=== PATIENT | female | born 1965 | race Caucasian/White ===

== ENCOUNTER 2021-10-28 17:14 | Inpatient (IN) | payer OTHER ==
[2021-10-28] MEDS ORDERED: SODIUM CHLORIDE 0.9% 500 ML INFUS.BAG IV ONE (17:55)
[2021-10-28 18:44] LABS: BASO % 0.8 % (0-2.0); EOS % 0.7 % (0-4.5); HEMATOCRIT 34.2 % (32.4-45.2); HEMOGLOBIN 11.6 GM/dL (10.7-15.3); LYMPH % 34.1 % (8-40); MCHC 33.9 g/dl (32.0-36.0); MEAN CELL VOLUME 91.6 fl (80-96); MEAN PLT VOLUME 9.7 fl (7.5-11.1); MONO % 8.1 % (3.8-10.2); NEUT % 56.3 % (42.8-82.8); PLATELET COUNT 155 10^3/uL (134-434); RBC 3.73 M/mm3 (3.60-5.2); RDW 12.7 % (11.6-15.6); WHITE BLOOD COUNT 6.9 K/mm3 (4.0-10.0)
[2021-10-28 18:59] LABS: INR 1.05 (0.83-1.09); PROTHROMBIN TIME (PATIENT) 12.1 SEC (9.7-13.0)
[2021-10-28 19:02] LABS: ACTIVATED PTT 29.7 SECONDS (25.2-36.5)
[2021-10-28 19:05] LABS: ALBUMIN 3.6 g/dl (3.4-5.0); CALCIUM 8.7 mg/dL (8.5-10.1)
[2021-10-28 19:06] LABS: BLOOD UREA NITROGEN 24.7 mg/dL (7-18); MAGNESIUM 1.9 mg/dL (1.8-2.4)
[2021-10-28 19:08] LABS: CREATININE 0.6 mg/dL (0.55-1.3)
[2021-10-28 19:09] LABS: PHOSPHOROUS 3.9 mg/dL (2.5-4.9)
[2021-10-28 19:10] LABS: BILIRUBIN,TOTAL 0.6 mg/dL (0.2-1); TOT PROT 6.1 g/dl (6.4-8.2)
[2021-10-29 02:35] LABS: BASO % 0.9 % (0-2.0); EOS % 1.1 % (0-4.5); HEMATOCRIT 32.4 % (32.4-45.2); LYMPH % 39.8 % (8-40); MCH 31.3 pg (25.7-33.7); MCHC 33.9 g/dl (32.0-36.0); MEAN CELL VOLUME 92.2 fl (80-96); MEAN PLT VOLUME 9.7 fl (7.5-11.1); MONO % 8.4 % (3.8-10.2); NEUT % 49.8 % (42.8-82.8); PLATELET COUNT 152 10^3/uL (134-434); RBC 3.51 M/mm3 (3.60-5.2); RDW 12.7 % (11.6-15.6); WHITE BLOOD COUNT 6.7 K/mm3 (4.0-10.0)
[2021-10-29] MEDS: SODIUM CHLORIDE 1,000 ML IV SCH (03:00)
[2021-10-29 03:20] VITALS: BMI 24.7
[2021-10-29 09:29] LABS: ALBUMIN 3.4 g/dl (3.4-5.0); BLOOD UREA NITROGEN 17.3 mg/dL (7-18); CALCIUM 8.7 mg/dL (8.5-10.1); MAGNESIUM 2.1 mg/dL (1.8-2.4)
[2021-10-29 09:32] LABS: CREATININE 0.6 mg/dL (0.55-1.3); PHOSPHOROUS 3.8 mg/dL (2.5-4.9)
[2021-10-29 09:34] LABS: BILIRUBIN,TOTAL 0.7 mg/dL (0.2-1); TOT PROT 5.7 g/dl (6.4-8.2)
[2021-10-29 09:39] LABS: EPI CELLS 21 /uL (0-25.1); HYALINE CASTS 0 /uL (0-3.1); URINE APPEARANCE CLEAR; URINE BACTERIA 263 /uL (0-1359); URINE BILIRUBIN NEGATIVE (NEGATIVE); URINE COLOR YELLOW; URINE GLUCOSE (UA) NEGATIVE (NEGATIVE); URINE KETONE NEGATIVE (NEGATIVE); URINE LEUK ESTERASE 2+ (NEGATIVE); URINE NITRITE NEGATIVE (NEGATIVE); URINE PROTEIN NEGATIVE (NEGATIVE); URINE RBC 15 /uL (0-23.9); URINE UROBILINOGEN 0.2 mg/dL (0.2-1.0); URINE WBC 98 /uL (0-25.8)
[2021-10-29] MEDS ORDERED: PANTOPRAZOLE SODIUM 40 MG VIAL IVPUSH SCH (10:00)
[2021-10-29 10:08] LABS: BASO % 0.7 % (0-2.0); EOS % 1.4 % (0-4.5); HEMOGLOBIN 10.5 GM/dL (10.7-15.3); LYMPH % 39.2 % (8-40); MCH 30.3 pg (25.7-33.7); MCHC 32.8 g/dl (32.0-36.0); MEAN CELL VOLUME 92.6 fl (80-96); MEAN PLT VOLUME 10.1 fl (7.5-11.1); MONO % 9.2 % (3.8-10.2); NEUT % 49.5 % (42.8-82.8); PLATELET COUNT 154 10^3/uL (134-434); RBC 3.45 M/mm3 (3.60-5.2); RDW 12.7 % (11.6-15.6); WHITE BLOOD COUNT 4.4 K/mm3 (4.0-10.0)
[2021-10-29 15:20] LABS: HEMATOCRIT 31.1 % (32.4-45.2); HEMOGLOBIN 10.3 GM/dL (10.7-15.3); MCH 30.8 pg (25.7-33.7); MCHC 33.1 g/dl (32.0-36.0); MEAN CELL VOLUME 92.9 fl (80-96); MEAN PLT VOLUME 9.9 fl (7.5-11.1); PLATELET COUNT 149 10^3/uL (134-434); RBC 3.34 M/mm3 (3.60-5.2); RDW 12.8 % (11.6-15.6); WHITE BLOOD COUNT 5.5 K/mm3 (4.0-10.0)
[2021-10-29] MEDS ORDERED: BISACODYL 5 MG TABLET.DR (FP) PO ONE (17:00)
[2021-10-29] MEDS: PEG 3350/NA SULF BICARB CL/KCL 4000 ML SOLN.RECON PO ONE ×2 (17:09→17:58)
[2021-10-30] MEDS: SODIUM CHLORIDE 1,000 ML IV SCH ×2 (00:13→10:16)
[2021-10-30 09:53] LABS: BASO % 0.9 % (0-2.0); EOS % 3.6 % (0-4.5); HEMATOCRIT 28.9 % (32.4-45.2); HEMOGLOBIN 9.7 GM/dL (10.7-15.3); LYMPH % 43.1 % (8-40); MCHC 33.5 g/dl (32.0-36.0); MEAN CELL VOLUME 92.6 fl (80-96); MONO % 9.3 % (3.8-10.2); NEUT % 43.1 % (42.8-82.8); PLATELET COUNT 142 10^3/uL (134-434); RBC 3.12 M/mm3 (3.60-5.2); RDW 12.6 % (11.6-15.6); WHITE BLOOD COUNT 4.1 K/mm3 (4.0-10.0)
[2021-10-30] MEDS: PANTOPRAZOLE 40 MG TABLET PO SCH (10:16)
[2021-10-30 10:27] LABS: ALBUMIN 3.4 g/dl (3.4-5.0); BLOOD UREA NITROGEN 11.2 mg/dL (7-18); CALCIUM 8.5 mg/dL (8.5-10.1); MAGNESIUM 1.8 mg/dL (1.8-2.4); PHOSPHOROUS 3.9 mg/dL (2.5-4.9)
[2021-10-30 10:28] LABS: CREATININE 0.6 mg/dL (0.55-1.3)
[2021-10-30 10:29] LABS: BILIRUBIN,TOTAL 0.4 mg/dL (0.2-1); TOT PROT 5.5 g/dl (6.4-8.2)
[2021-10-30 19:56] LABS: BASO % 0.7 % (0-2.0); EOS % 3.3 % (0-4.5); HEMATOCRIT 26.9 % (32.4-45.2); HEMOGLOBIN 8.7 GM/dL (10.7-15.3); LYMPH % 37.6 % (8-40); MCH 30.4 pg (25.7-33.7); MCHC 32.4 g/dl (32.0-36.0); MEAN CELL VOLUME 93.8 fl (80-96); MEAN PLT VOLUME 9.7 fl (7.5-11.1); MONO % 10.7 % (3.8-10.2); NEUT % 47.7 % (42.8-82.8); PLATELET COUNT 145 10^3/uL (134-434); RBC 2.87 M/mm3 (3.60-5.2); RDW 12.5 % (11.6-15.6); WHITE BLOOD COUNT 4.8 K/mm3 (4.0-10.0)
[2021-10-31 08:47] LABS: BASO % 0.7 % (0-2.0); EOS % 4.9 % (0-4.5); HEMATOCRIT 28.8 % (32.4-45.2); HEMOGLOBIN 9.6 GM/dL (10.7-15.3); LYMPH % 39.7 % (8-40); MCH 31.3 pg (25.7-33.7); MCHC 33.5 g/dl (32.0-36.0); MEAN CELL VOLUME 93.6 fl (80-96); MONO % 8.7 % (3.8-10.2); PLATELET COUNT 149 10^3/uL (134-434); RBC 3.08 M/mm3 (3.60-5.2); RDW 12.9 % (11.6-15.6); WHITE BLOOD COUNT 4.5 K/mm3 (4.0-10.0)
[2021-10-31 09:19] LABS: CALCIUM 8.7 mg/dL (8.5-10.1)
[2021-10-31 09:20] LABS: ALBUMIN 3.2 g/dl (3.4-5.0); BLOOD UREA NITROGEN 7.2 mg/dL (7-18)
[2021-10-31 09:22] LABS: CREATININE 0.6 mg/dL (0.55-1.3)
[2021-10-31 09:23] LABS: BILIRUBIN,TOTAL 0.5 mg/dL (0.2-1)
[2021-10-31 09:24] LABS: TOT PROT 5.5 g/dl (6.4-8.2)
[2021-10-31] MEDS: PANTOPRAZOLE 40 MG TABLET PO SCH (09:52)
[2021-10-31 11:06] LABS: BASO % 0.8 % (0-2.0); EOS % 3.1 % (0-4.5); HEMOGLOBIN 9.4 GM/dL (10.7-15.3); LYMPH % 37.3 % (8-40); MCHC 33.7 g/dl (32.0-36.0); MEAN CELL VOLUME 92.1 fl (80-96); MEAN PLT VOLUME 9.5 fl (7.5-11.1); MONO % 9.2 % (3.8-10.2); NEUT % 49.6 % (42.8-82.8); PLATELET COUNT 153 10^3/uL (134-434); RBC 3.04 M/mm3 (3.60-5.2); RDW 12.7 % (11.6-15.6); WHITE BLOOD COUNT 4.2 K/mm3 (4.0-10.0)
[2021-10-31 15:48] VITALS: BP 115/71; PULSE 88; TEMP 97.8
== END 2021-10-31 16:12 | disposition home or self-care (01) | DRG 244 ==
LOC: JER 17:14 → JERBED 23:55 → INTOOBSV 23:55 → J8W 10-29 02:52 → OBSVTOIN 10-30 15:31
PROVIDERS: ADMIT Internal Medicine; ATTEND Internal Medicine
PROC: 0DDC8ZX Extraction of Ileocecal Valve, Via Natural or Artificial Opening Endoscopic, Diagnostic (ICD-10-PCS; 2021-10-30)
PROC: 0DB58ZX Excision of Esophagus, Via Natural or Artificial Opening Endoscopic, Diagnostic (ICD-10-PCS; 2021-10-30)
PROC: 0DBN8ZZ Excision of Sigmoid Colon, Via Natural or Artificial Opening Endoscopic (ICD-10-PCS; principal; 2021-10-30 13:00)
DX: K57.31 Diverticulosis of large intestine without perforation or abscess with bleeding (principal); K64.4 Residual hemorrhoidal skin tags; N83.202 Unspecified ovarian cyst, left side; K62.5 Hemorrhage of anus and rectum; K56.7 Ileus, unspecified; M50.31 Other cervical disc degeneration, high cervical region; K64.8 Other hemorrhoids; D12.5 Benign neoplasm of sigmoid colon; K44.9 Diaphragmatic hernia without obstruction or gangrene; Z85.3 Personal history of malignant neoplasm of breast
CPT/HCPCS: 36415; 74177-TC; 80053; 81003; 82272; 83605; 83735; 84100; 85025; 85027; 85610; 85730; 86850; 86900; 86901; 87086; 87186; 88305-TC; 93005; 93010; 99285-25; C9803-CS; G0378; Q9967; U0003; U0005

== ENCOUNTER 2024-12-22 19:54 | Inpatient (IN) | payer BC, OTHER ==
[2024-12-22 20:43] LABS: ABSOLUTE IMMATURE GRANULOCYTES 0.02 x10^3/uL (0.0-0.031); BASOPHILS # 0.06 x10^3/uL (0.01-0.08); EOSINOPHIL % 1.9 % (0.7-5.8); EOSINOPHILS # 0.15 x10^3/uL (0.04-0.36); MCHC 32.3 g/dl (32.2-35.5); MEAN CELL VOLUME 94.8 fl (79.4-94.8); MEAN PLT VOLUME 10.8 fl (9.4-12.3); MONOCYTE # 0.55 x10^3/uL (0.24-0.86); MONOCYTE % 7.1 % (4.7-12.5); RDW 12.4 % (12.3-16.6)
[2024-12-22 20:49] LABS: INR 0.96 (0.83-1.09); PROTHROMBIN TIME (PATIENT) 10.6 SEC (9.7-13.0)
[2024-12-22 20:51] LABS: ACTIVATED PTT 27.4 SECONDS (25.2-36.5)
[2024-12-22 21:04] LABS: CO2 26.0 mmol/L (21-32); GLUCOSE,RANDOM 138.0 mg/dL (74-106)
[2024-12-22 21:07] LABS: CREATININE 0.6 mg/dL (0.55-1.3); SGOT/AST 24.0 U/L (15-37); SGPT/ALT 27.0 U/L (13-61)
[2024-12-22 21:09] LABS: TOT PROT 6.1 g/dl (6.4-8.2)
[2024-12-22 21:10] LABS: ALK PHOS 62.0 U/L (45-117)
[2024-12-22 22:38] LABS: MCHC 31.3 g/dl (32.2-35.5); MEAN CELL VOLUME 96.9 fl (79.4-94.8); MEAN PLT VOLUME 10.5 fl (9.4-12.3); RDW 12.3 % (12.3-16.6)
[2024-12-23 00:20] LABS: HCV DIAGNOSTIC IN-HOUSE W/RFLX NON-REACTIVE (NONREACTIVE)
[2024-12-23 00:23] LABS: HIV INTERPRETATION NEGATIVE (NEGATIVE)
[2024-12-23] MEDS: PANTOPRAZOLE SODIUM 40 MG VIAL IVPUSH SCH (02:55)
[2024-12-23 03:10] LABS: ABSOLUTE IMMATURE GRANULOCYTES 0.05 x10^3/uL (0.0-0.031); BASOPHILS # 0.05 x10^3/uL (0.01-0.08); EOSINOPHIL % 0.2 % (0.7-5.8); EOSINOPHILS # 0.02 x10^3/uL (0.04-0.36); MCHC 32.1 g/dl (32.2-35.5); MEAN CELL VOLUME 93.2 fl (79.4-94.8); MEAN PLT VOLUME 10.8 fl (9.4-12.3); MONOCYTE # 0.43 x10^3/uL (0.24-0.86); MONOCYTE % 4.5 % (4.7-12.5); RDW 13.1 % (12.3-16.6)
[2024-12-23 03:16] VITALS: BMI 26.9
[2024-12-23] MEDS: MUPIROCIN 2% TOPICAL OINTMENT FOR DECOLONIZATION NS SCH (03:31)
[2024-12-23 03:32] LABS: CO2 25.0 mmol/L (21-32); GLUCOSE,RANDOM 123.0 mg/dL (74-106)
[2024-12-23 03:35] LABS: CREATININE 0.6 mg/dL (0.55-1.3); SGOT/AST 21.0 U/L (15-37); SGPT/ALT 24.0 U/L (13-61)
[2024-12-23 03:37] LABS: TOT PROT 5.7 g/dl (6.4-8.2)
[2024-12-23 03:38] LABS: ALK PHOS 55.0 U/L (45-117)
[2024-12-23] MEDS: MAGNESIUM 1GM/D5W - 1 GM/100 ML IVPB IVPB ONE (09:15)
[2024-12-23 11:35] LABS: ABSOLUTE IMMATURE GRANULOCYTES 0.04 x10^3/uL (0.0-0.031); BASOPHILS # 0.05 x10^3/uL (0.01-0.08); EOSINOPHIL % 0.7 % (0.7-5.8); EOSINOPHILS # 0.07 x10^3/uL (0.04-0.36); MCHC 32.8 g/dl (32.2-35.5); MEAN CELL VOLUME 91.5 fl (79.4-94.8); MEAN PLT VOLUME 10.7 fl (9.4-12.3); MONOCYTE # 0.79 x10^3/uL (0.24-0.86); MONOCYTE % 7.8 % (4.7-12.5); RDW 13.6 % (12.3-16.6)
[2024-12-23] MEDS: BISACODYL 5 MG TABLET.DR (FP) PO ONE (17:12)
[2024-12-23] MEDS: PEG 3350/NA SULF BICARB CL/KCL 4000 ML SOLN.RECON PO ONE (17:12)
[2024-12-23] MEDS: LACTATED RINGERS SOLUTION 1,000 ML/1,000 ML INFUS.BAG IV SCH (19:59)
[2024-12-23] MEDS: CHLORHEXIDINE GLUCONATE 4% CLEANSER FOR DECOLONIZATION TP SCH (21:36)
[2024-12-23] MEDS ORDERED: CHLORHEXIDINE GLUCONATE 4% CLEANSER FOR DECOLONIZATION TP SCH (22:00)
[2024-12-23] MEDS: ACETAMINOPHEN 1000 MG/100 ML BAG IVPB ONE (22:02)
[2024-12-23 22:19] LABS: MCHC 32.9 g/dl (32.2-35.5); MEAN CELL VOLUME 91.7 fl (79.4-94.8); MEAN PLT VOLUME 11.0 fl (9.4-12.3); RDW 13.6 % (12.3-16.6)
[2024-12-24 06:45] LABS: MCHC 32.8 g/dl (32.2-35.5); MEAN CELL VOLUME 92.2 fl (79.4-94.8); MEAN PLT VOLUME 11.0 fl (9.4-12.3); RDW 13.4 % (12.3-16.6)
[2024-12-24 07:00] LABS: CO2 27.0 mmol/L (21-32); GLUCOSE,RANDOM 101.0 mg/dL (74-106)
[2024-12-24 07:03] LABS: CREATININE 0.5 mg/dL (0.55-1.3); SGOT/AST 14.0 U/L (15-37); SGPT/ALT 21.0 U/L (13-61)
[2024-12-24 07:05] LABS: TOT PROT 5.2 g/dl (6.4-8.2)
[2024-12-24 07:06] LABS: ALK PHOS 58.0 U/L (45-117)
[2024-12-25 06:15] LABS: MCHC 32.1 g/dl (32.2-35.5); MEAN CELL VOLUME 93.0 fl (79.4-94.8); MEAN PLT VOLUME 10.9 fl (9.4-12.3); RDW 13.0 % (12.3-16.6)
[2024-12-25 09:22] VITALS: PULSE 85; RESP 19; TEMP 98.7
[2024-12-25 16:52] VITALS: BP 140/90
== END 2024-12-25 12:30 | disposition home or self-care (01) | DRG 379 ==
LOC: JER 19:54 → JERBED 20:39 → JICU 12-23 02:42 → J2W 12-23 17:51
PROVIDERS: ADMIT Internal Medicine Pulmonary Disease; ATTEND Student in an Organized Health Care Education/Training Program
PROC: 30233N1 Transfusion of Nonautologous Red Blood Cells into Peripheral Vein, Percutaneous Approach (ICD-10-PCS; 2024-12-22)
PROC: 0DJD8ZZ Inspection of Lower Intestinal Tract, Via Natural or Artificial Opening Endoscopic (ICD-10-PCS; principal; 2024-12-24 12:00)
DX: K57.31 Diverticulosis of large intestine without perforation or abscess with bleeding (principal); D64.9 Anemia, unspecified; K21.9 Gastro-esophageal reflux disease without esophagitis; Z85.3 Personal history of malignant neoplasm of breast; K64.8 Other hemorrhoids
CPT/HCPCS: 36415; 36430; 36511; 37244; 71045-TC-FY; 74177-TC; 76937; 80053; 82272; 83605; 83735; 84100; 84484; 85025; 85027; 85610; 85730; 86803; 86850; 86900; 86901; 86922; 87389; 87637-QW; 93005; 93010; 99291; C1769; C1887; C1894; P9038; P9058; Q9967